=== PATIENT | male | born 1970 | race Two or more races ===

== ENCOUNTER 2017-05-09 19:23 | Emergency (ER) | payer OTHER ==
[2017-05-09 19:24] VITALS: BP 130/76; PULSE 95; RESP 18; TEMP 98.6; O2SAT 98
--- NOTE | 2017-05-09 20:26 | RADRPT ---
EXAM DATE/TIME: 05/09/2017 20:14 [facility] COMPARISON: No previous studies available for comparison. INDICATIONS : Fall from ladder onto right side. MEDICAL HISTORY : None. SURGICAL HISTORY : None. ENCOUNTER: Initial ACUITY: 1 day PAIN SCORE: 5/10 LOCATION: Bilateral chest FINDINGS: PA and lateral views of the chest demonstrate the lungs to be symmetrically aerated without evidence of mass, infiltrate or effusion. The cardiomediastinal contours are unremarkable. There is some mild deformity of the anterior lateral aspect of right rib #7 and laterally of 8 reaching a question as t o occult fractures.. CONCLUSION: Subtle deformity of right rib #7 anterior laterally and a laterally raising the question as to occult fractures Yohan Duarte MD on May 09, 2017 at 20:23 Board Certified Radiologist. This report was verified electronically.
[2017-05-09 22:10] VITALS: BP 117/72; PULSE 82; RESP 18; O2SAT 98
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
[2017-05-09] MEDS ORDERED: ULTR50TA5 PO (22:56)
== END 2017-05-09 23:21 | disposition home or self-care (01) ==
LOC: NEPE 19:23
DX: S22.31XA Fracture of one rib, right side, initial encounter for closed fracture (principal); F17.200 Nicotine dependence, unspecified, uncomplicated; W11.XXXA Fall on and from ladder, initial encounter; Y99.0 Civilian activity done for income or pay
CPT/HCPCS: 71020; 99283

== ENCOUNTER 2017-11-07 13:57 | Emergency (ER) | payer OTHER ==
[~2017-11-07 13:57] MED LIST: TRAM50 PO
[2017-11-07 14:02] VITALS: BP 118/75; PULSE 86; RESP 20; TEMP 98.8; O2SAT 100
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
[2017-11-07] MEDS ORDERED: CYCL10TA PO (16:03)
[2017-11-07] MEDS ORDERED: IBUP-232 PO (16:03)
== END 2017-11-07 16:15 | disposition home or self-care (01) ==
LOC: NEPD 13:57
DX: S16.1XXA Strain of muscle, fascia and tendon at neck level, initial encounter (principal); R42 Dizziness and giddiness; V49.49XA Driver injured in collision with other motor vehicles in traffic accident, initial encounter; Y92.410 Unspecified street and highway as the place of occurrence of the external cause
CPT/HCPCS: 70450; 72125; 99283